=== PATIENT | male | born 1955 | race Caucasian/White ===

== ENCOUNTER 2022-05-13 13:17 | Emergency (ER) | payer BC, OTHER ==
[2022-05-13] MEDS ORDERED: Diphtheria,Pertussis(Acell),Tetanus Vaccine 0.5 ML Syringe IM ONE (13:52)
[2022-05-13] MEDS ORDERED: Lidocaine 1% 10 ML MDV INJECT ONE (15:24)
[2022-05-13] MEDS ORDERED: Cephalexin 500 MG Cap PO ONE (15:46)
== END 2022-05-13 16:34 | disposition home or self-care (01) ==
LOC: JD.ED 13:17
DX: S61.212A Laceration without foreign body of right middle finger without damage to nail, initial encounter (principal); Z88.0 Allergy status to penicillin; Z88.2 Allergy status to sulfonamides; Z88.1 Allergy status to other antibiotic agents; Z88.8 Allergy status to other drugs, medicaments and biological substances; Z23 Encounter for immunization; Y29.XXXA Contact with blunt object, undetermined intent, initial encounter
CPT/HCPCS: 12001; 73140; 90471; 90715; 99283; A9270; J3490

== ENCOUNTER 2022-05-26 17:22 | Emergency (ER) | payer OTHER | END 2022-05-26 18:05 | disposition home or self-care (01) | LOC: JD.ED 17:22 | DX: T78.40XA Allergy, unspecified, initial encounter (principal); Z88.0 Allergy status to penicillin; Z88.1 Allergy status to other antibiotic agents; Z88.2 Allergy status to sulfonamides; Z88.8 Allergy status to other drugs, medicaments and biological substances | CPT/HCPCS: 99282; 99283 ==